=== PATIENT | male | born 1955 | race Caucasian/White ===

== ENCOUNTER → 2016-10-16 | Outpatient (CLI) | payer OTHER ==
--- NOTE | 2016-10-16 10:15 | RAD ---
Indication: Follow-up renal cancer. No symptoms at this time. Technique: CT abdomen includes axial images and coronal and sagittal reformatted images. Evaluation is limited without IV or oral contrast. Pelvis was not included. Comparison is from March 07, 2016. One or more of the following individualized dose reduction techniques were utilized for this examination: 1. Automated exposure control 2. Adjustment of the mA and/or kV according to patient size 3. Use of iterative reconstruction technique Findings: The lung bases are clear. There is no pleural effusion. The heart is not enlarged. Solid organ evaluation is limited without IV contrast. The liver, gallbladder, spleen, pancreas, and left adrenal are unremarkable. Right adrenal is probably still present, postoperative suture line adjacent to the right adrenal is noted with the right kidney absent. There is no evidence of residual or recurrent tumor in the right renal fossa. Areas of cortical scarring in the left kidney has similar appearance to prior. Probable cyst in the left kidney measures 2 cm and is stable. Parapelvic cysts are noted. Evaluation for solid renal mass is limited without contrast. Subcentimeter retroperitoneal lymph nodes are stable. No new or enlarging adenopathy is apparent. There is a small to medium-sized hiatal hernia. There is no small bowel obstruction or mural thickening. Normal appendix is noted. Colon is grossly unremarkable. Again, evaluation is limited to the abdomen, not all small bowel loops or entirety of the colon is included. There are degenerative changes in the spine. There are probably old rib fractures. Impression: 1. Previous right nephrectomy. No evidence of residual or recurrent tumor. 2. Cortical cyst and parapelvic cysts in the left kidney are similar to prior. Area of cortical scarring in the left kidney is similar to prior.
== END | disposition home or self-care (01) ==
LOC: CT 08:10
PROVIDERS: ATTEND Physician Assistant Medical
DX: C64.9 Malignant neoplasm of unspecified kidney, except renal pelvis (principal)
CPT/HCPCS: 74150

== ENCOUNTER 2017-08-26 08:58 | Emergency (ER) | payer OTHER ==
[~2017-08-26] VITALS: Ht 175.3 cm; Wt 86.2 kg
[2017-08-26] MEDS: NITROGLYCERIN SUBLINGUAL 0.4 MG BOTTLE OF 25. SL PRN ×2 (09:14→09:40)
[2017-08-26] MEDS: ASPIRIN 81 MG TAB.CHEW PO ONE ×2 (09:15→09:57)
--- NOTE | 2017-08-26 09:17 | RAD ---
Single view chest 08/26/2017 Clinical indication: Chest pain. Comparison: CT chest 03/07/2016 Findings: Cardiac and mediastinal silhouettes are unremarkable. No pleural effusion, pneumothorax or focal consolidation. Impression: No acute cardiopulmonary abnormality.
[2017-08-26] MEDS ORDERED: ONDANSETRON PF 4 MG/2 ML VIAL. ONE (09:22)
[2017-08-26 09:30] LABS: BASO # 0.3 x10^3/uL (0.0-0.2); BASO % 2 % (0-3); EOS % 0 % (0-3); HEMATOCRIT 45.6 % (39.0-53.0); HEMOGLOBIN 15.8 g/dL (13.0-17.5); LYMPH # 0.8 x10^3/uL (1.0-4.8); LYMPH % 4 % (24-48); MEAN CORPUSCULAR HEMOGLOBIN 32 pg (25-35); MEAN CORPUSCULAR HGB CONC 35 g/dL (31-37); MEAN CORPUSCULAR VOLUME 93 fL (79-100); MONO % 5 % (0-9); NEUT # 17.5 x10^3uL (1.8-7.7); NEUT % 89 % (31-73); PLATELET COUNT 275 x10^3/uL (140-400); WHITE BLOOD COUNT 19.6 x10^3/uL (4.0-11.0)
[2017-08-26] MEDS ORDERED: ONDANSETRON PF 4 MG/2 ML VIAL. IV ONE (09:30)
[2017-08-26 09:55] LABS: ALBUMIN/GLOBULIN RATIO 1.2 (1.0-1.7); CALCIUM 9.3 mg/dL (8.5-10.1); CREATININE 1.4 mg/dL (0.7-1.3); GFR 51.5; MAGNESIUM 1.8 mg/dL (1.8-2.4); TOTAL BILIRUBIN 0.7 mg/dL (0.2-1.0); TOTAL PROTEIN 7.4 g/dL (6.4-8.2)
--- NOTE | 2017-08-26 10:10 | PHYS DOC ---
Past History Past Medical History: Hypertension Additional Past Medical Histor: BPH, GERD Past Surgical History: Other Additional Past Surgical Histo: right nephrectomy because of renal cell carcinoma in 2016 Smoking: Non-smoker Alcohol Use: None Drug Use: None Adult General Chief Complaint Chief Complaint: CHEST PAIN [facility] HPI 62-year-old male patient with history of hypertension, renal cell carcinoma status post right nephrectomy in 2016, GERD and BPH and positive family history of CAD complaining of episodes of exertional left-sided chest pain for the last 5 days patient complaining of aching pain in the chest with radiation to his neck and left scapula and associated with mild shortness of breath and dizziness that happened after exercise and last about 30 minutes patient states he had 4 episodes of the same pain for 3 days and did not to exercise yesterday but after eating dobutamine developed chest pain at 1400 as a constant pain that getting worse with movement and taking deep breaths. Patient states the pain was 5/10 that gradually increased to 8 or 9/10 and did not get better with leftover of Dilaudid from his previous surgery that he took last night. 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 Patient had 1 episode of vomiting this morning. Patient states he has some mild episodes of chest pain previously had unremarkable cardiac evaluation 3 years ago. Review of Systems Review of Systems Constitutional: Denies fever or chills [] Eyes: Denies change in visual acuity, redness, or eye pain [] HENT: Denies nasal congestion or sore throat [] Respiratory: Denies cough, reports shortness of breath [] Cardiovascular: No additional information not addressed in HPI [] GI: Denies abdominal pain, nausea, bloody stools or diarrhea ,reports vomiting [ ] : Denies dysuria or hematuria [] Musculoskeletal: Denies back pain or joint pain [] Integument: Denies rash or skin lesions [] Neurologic: Denies headache, focal weakness or sensory changes [] Endocrine: Denies polyuria or polydipsia [] All other systems were reviewed and found to be within normal limits, except as documented in this note. Current Medications Current Medications Current Medications Medications (Trade) Dose Ordered Sig/Aziza Start Time Stop Time Status Last Admin Dose Admin Aspirin (Children'S Aspirin) 324 mg 1X ONCE 08/26/17 09:15 08/26/17 09:16 DC 08/26/17 09:57 324 MG Heparin Sodium (Porcine) (Heparin Sodium) 4,000 unit 1X ONCE 08/26/17 10:15 08/26/17 10:16 Morphine Sulfate (Morphine 4mg Syringe) 4 mg 1X ONCE 08/26/17 10:15 08/26/17 10:16 Nitroglycerin (Nitrostat) 0.4 mg PRN Q5MIN PRN 08/26/17 09:15 08/27/17 09:14 08/26/17 09:40 0.4 MG Ondansetron HCl (Zofran) 4 mg 1X ONCE 08/26/17 09:30 08/26/17 09:31 DC 08/26/17 09:20 4 MG Allergies Allergies Allergies Coded Allergies Type Severity Reaction Last Updated Verified No Known Drug Allergies 11/08/15 No Physical Exam Physical Exam Constitutional: Well developed, well nourished, mild distress, non-toxic appearance, anxious. [] HENT: Normocephalic, atraumatic, bilateral external ears normal, oropharynx moist, no oral exudates, nose normal. [] Eyes: PERRLA, EOMI, conjunctiva normal, no discharge. [] Neck: Normal range of motion, no tenderness, supple, no stridor. [] Cardiovascular:Heart rate regular rhythm, no murmur [] Lungs & Thorax: Bilateral breath sounds clear to auscultation [] Abdomen: Bowel sounds normal, soft, no tenderness, no masses, no pulsatile masses. [] Skin: Warm, dry, no erythema, no rash. [] Back: No tenderness, no CVA tenderness. [] Extremities: No tenderness, no cyanosis, no clubbing, ROM intact, no edema. [] Neurologic: Alert and oriented X 3, normal motor function, normal sensory function, no focal deficits noted. [] Psychologic: Affect normal, judgement normal, mood normal. [] Current Patient Data Vital Signs Vital Signs Date Time Temp Pulse Resp B/P (MAP) Pulse Ox O2 Delivery O2 Flow Rate FiO2 08/26/17 09:40 92 146/75 Lab Results Laboratory Tests Test 08/26/17 09:19 White Blood Count 19.6 x10^3/uL (4.0-11.0) H Red Blood Count 4.90 x10^6/uL (4.30-5.70) Hemoglobin 15.8 g/dL (13.0-17.5) Hematocrit 45.6 % (39.0-53.0) Mean Corpuscular Volume 93 fL (79-100) Mean Corpuscular Hemoglobin 32 pg (25-35) Mean Corpuscular Hemoglobin Concent 35 g/dL (31-37) Red Cell Distribution Width 13.0 % (11.5-14.5) Platelet Count 275 x10^3/uL (140-400) Neutrophils (%) (Auto) 89 % (31-73) H Lymphocytes (%) (Auto) 4 % (24-48) L Monocytes (%) (Auto) 5 % (0-9) Eosinophils (%) (Auto) 0 % (0-3) Basophils (%) (Auto) 2 % (0-3) Neutrophils # (Auto) 17.5 x10^3uL (1.8-7.7) H Lymphocytes # (Auto) 0.8 x10^3/uL (1.0-4.8) L Monocytes # (Auto) 1.0 x10^3/uL (0.0-1.1) Eosinophils # (Auto) 0.0 x10^3/uL (0.0-0.7) Basophils # (Auto) 0.3 x10^3/uL (0.0-0.2) H Platelet Estimate Pending Prothrombin Time 10.8 SEC (9.4-11.4) Prothrombin Time INR 1.1 (0.9-1.1) Sodium Level 140 mmol/L (136-145) Potassium Level 4.0 mmol/L (3.5-5.1) Chloride Level 104 mmol/L (98-107) Carbon Dioxide Level 29 mmol/L (21-32) Anion Gap 7 (6-14) Blood Urea Nitrogen 21 mg/dL (8-26) Creatinine 1.4 mg/dL (0.7-1.3) H Estimated GFR (Cockcroft-Gault) 51.5 BUN/Creatinine Ratio 15 (6-20) Glucose Level 147 mg/dL (70-99) H Calcium Level 9.3 mg/dL (8.5-10.1) Magnesium Level 1.8 mg/dL (1.8-2.4) Total Bilirubin 0.7 mg/dL (0.2-1.0) Aspartate Amino Transferase (AST) 202 U/L (15-37) H Alanine Aminotransferase (ALT) 42 U/L (16-63) Alkaline Phosphatase 77 U/L (46-116) Creatine Kinase 1539 U/L (39-308) H Creatine Kinase MB (Mass) 295.9 ng/mL (0.0-3.6) H Creatine Kinase MB Relative Index 19.2 % (0-4) H Troponin I Quantitative 12.607 ng/mL (0-0.055) H NH-Fxs-U-Type Natriuretic Peptide 2688 pg/mL (0-124) H Total Protein 7.4 g/dL (6.4-8.2) Albumin 4.0 g/dL (3.4-5.0) Albumin/Globulin Ratio 1.2 (1.0-1.7) Lipase 1069 U/L (73-393) H EKG EKG EKG interpreted by me. EKG at 0904 showed normal sinus rhythm at rate of 74, Q waves in V1 and V2, no acute ST and T-wave elevation[] Radiology/Procedures Radiology/Procedures [Chest x-ray was unremarkable] Course & Med Decision Making Course & Med Decision Making Pertinent Labs and Imaging studies reviewed. (See chart for details) Evaluation of patient in ER showed 62-year-old male patient with episodes of exertional chest pain that became constant and nonexertional since yesterday afternoon. 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 EKG showed Q wave in the 1 and V2 with very mild ST elevation that did not match criteria for STEMI. Point was 12.6. Patient treated with heparin bolus and drip and morphine and his pain resolved. Cardiology legislative correspondent at [facility] was informed and 1000 and his PA recommended to transfer patient to [facility]. accepted the transfer to [facility] at 1005. Labs showed elevation of lipase that looks like related to inflammation process of non-STEMI. Patient also had leukocytosis that was related to stress of ME. Patient had repeat EKG before transfer and both of the EKG was sent to the oriental rug stretcher at [facility] without any new recommendation. Ann Disclaimer Dragon Disclaimer This electronic medical record was generated, in whole or in part, using a voice recognition dictation system. Departure Departure: Impression: Primary Impression: NSTEMI (non-ST elevated myocardial infarction) Disposition: 02 XFER [facility] (At 1006) Condition: GUARDED Referrals: JIN REEVES (PCP) JARON CHILEL MD Aug 26, 2017 10:10
[2017-08-26] MEDS ORDERED: MORPHINE SULFATE 4 MG/ML DISP.SYRIN. IV ONE (10:15)
[2017-08-26] MEDS ORDERED: HEPARIN for IV BOLUS 10,000 UNIT/10 ML VIAL. IV ONE (10:15)
[2017-08-26 10:28] LABS: % BANDS 2 % (0-9); % LYMPHS 13 % (24-48); % MONOS 3 % (0-10); % SEGS 82 % (35-66); PLT ESTIMATE ADEQUATE (ADEQUATE)
[2017-08-26] MEDS ORDERED: HEPARIN 25,000UTS/500ML PREMIX 500 ML IV PRN (10:30)
[2017-08-26 10:42] VITALS: BP 147/89
--- NOTE | 2017-08-27 16:27 | EKG ---
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
--- NOTE | 2017-08-27 16:36 | EKG ---
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
== END 2017-08-26 10:56 | disposition short-term general hospital (02) ==
LOC: ER 08:58
DX: I21.4 Non-ST elevation (NSTEMI) myocardial infarction (principal); I10 Essential (primary) hypertension; K21.9 Gastro-esophageal reflux disease without esophagitis; N40.0 Benign prostatic hyperplasia without lower urinary tract symptoms; Z90.5 Acquired absence of kidney
CPT/HCPCS: 36415; 71045; 80053; 82553; 83690; 83735; 83880; 84484; 85007; 85025; 85610; 85730; 93005; 96365; 96375; 96376; 99285; J1644; J2270; J2405

== ENCOUNTER → 2017-10-24 | Outpatient (CLI) | payer OTHER ==
--- NOTE | 2017-10-24 09:10 | RAD ---
CT ABDOMEN PELVIS WO CONTRAST Indication: RENAL CELL CARCINOMA FOLLOW UP, RIGHT NEPHRECTOMY
NO CONTRAST PER ORDER, PREVIOUS CT SENT Exposure: One or more of the following individualized dose reduction techniques were utilized for this examination: 1. Automated exposure control 2. Adjustment of the mA and/or kV according to patient size 3. Use of iterative reconstruction technique. Comparison: October 16, 2016 Contrast: None, per request FINDINGS: Lung bases are clear. No evidence of pneumoperitoneum. Evaluation of solid viscera, bowel and vasculature is compromised by the noncontrast technique. Liver unremarkable. Spleen borderline enlarged at 12.5 cm, unchanged since prior study. Pancreas unremarkable. No adrenal mass. There has been a right nephrectomy. No evidence of mass in the right renal fossa. Lesion at the posterior cortex of the left kidney measures 2.1 cm, unchanged since prior study. Measures 3 Hounsfield units, similar to the prior study, most compatible with a cyst. The morphology of the left kidney appears similar to the prior study. Low-density lesions within the left renal pelvis, compatible with parapelvic cysts, appears similar to the prior study. No calcified gallstone. Aorta is nonaneurysmal. Small retroperitoneal lymph nodes are again demonstrated and are unchanged. Small hiatal hernia, similar to the prior study. Mild colonic diverticulosis. No evidence of pericolonic inflammatory change. No evidence of bowel obstruction. Appendix is normal and contains contrast, presumably retained from a prior oral contrast study. Prostate gland is enlarged, measuring 5.3 cm wide. The prostate indents the urinary bladder. Mild diffuse urinary bladder wall thickening. Thickening is greater posteroinferiorly, in the area of the prostate. Comparison with prior CT pelvis dated November 08, 2015 suggests that this wall thickening is slightly greater. No evidence of ascites. No destructive bone lesion. There is degenerative spondylosis of the spine. Mild degenerative changes of both hips. Small osteolytic lesion of the left iliac bone does not appear aggressive, and is unchanged from a prior CT scan of November 19, 2015. There are surgical clips in the anterior abdomen along the abdominal wall. IMPRESSION: 1. Prostatomegaly with mass effect upon the urinary bladder. Diffuse urinary bladder wall thickening, greatest posteroinferiorly. This could be related to cystitis or chronic bladder outlet obstruction. It is not possible to exclude a urinary bladder wall mass, particularly posteroinferiorly. 2. Stable appearance of the left kidney, with several lesions, most compatible with cysts. 3. No evidence of recurrent mass in the right renal fossa. 4. Borderline splenic enlargement, unchanged. Electronically signed by: Reji Geiger MD (10/24/2017 9:08 AM) [id number]
== END | disposition home or self-care (01) ==
LOC: CT 07:48
PROVIDERS: ATTEND Nurse Practitioner Family
DX: C64.9 Malignant neoplasm of unspecified kidney, except renal pelvis (principal); N40.0 Benign prostatic hyperplasia without lower urinary tract symptoms; K57.30 Diverticulosis of large intestine without perforation or abscess without bleeding; M47.899 Other spondylosis, site unspecified; K44.9 Diaphragmatic hernia without obstruction or gangrene; Z86.79 Personal history of other diseases of the circulatory system
CPT/HCPCS: 74176